=== PATIENT | male | born 1965 | race Caucasian/White ===

== ENCOUNTER 2016-10-23 12:43 | Emergency (ER) | payer MEDICAID ==
[2016-10-23] MEDS ORDERED: KETOROLAC 15 MG/1 ML SDV IVP ONE (13:38)
--- NOTE | 2016-10-23 13:45 | EDPHY ---
H & P Stated Complaint: Chronic low back pain exacerbation Time Seen by Provider: 10/23/16 13:12 HPI/ROS: Chief complaint low back pain HPI: 51-year-old male with a history of chronic low back pain and sciatica was walking today and twisted had exacerbation of worsening back pain. No new numbness or weakness. No difficulty with urination or with bowel movements. Patient's did state that he drank a couple shots of whiskey this morning hoping that would help. EMS was called and gave him fentanyl and Zofran and Valium. Patient is still complaining of a 7/10 pain. No nausea or vomiting. He did not fall. Did not hit his head. No loss of consciousness. Patient states he normally walks with a cane. He takes Toradol and cyclobenzaprine for his chronic back pain. ROS: 10 point Review of Systems is negative except as noted in the HPI. Past medical history: Sciatica and chronic back pain, hepatitis-C Medications: Cyclobenzaprine and tramadol Allergies: No known drug allergies Social history does smoke, drinks occasional alcohol, does use marijuana Physical exam: Gen: Awake, Alert, No Distress HEENT: Nose: no rhinorrhea Eyes: PERRLA, EOMI Mouth: Moist mucosa Neck: Supple, no JVD Chest: nontender, lungs clear to auscultation Heart: S1, S2 normal, no murmur Abd: Soft, non-tender, no guarding Back: no CVA tenderness, no midline tenderness, he has bilateral paraspinal tenderness in the lumbar and sacral muscles reproducing his presenting pain with palpable spasm Ext: no edema, non-tender Skin: no rash Neuro: CN II-XII intact, Sensation grossly intact, Strength 5/5 in bilateral upper and lower extremities - Personal History Current Tetanus/Diphtheria Vaccine: Unsure Current Tetanus Diphtheria and Acellular Pertussis (TDAP): Unsure - Medical/Surgical History Hx Asthma: No Hx Chronic Respiratory Disease: No Hx Diabetes: No Hx Cardiac Disease: No Hx Renal Disease: No Hx Cirrhosis: No Hx Alcoholism: No Hx HIV/AIDS: No Hx Splenectomy or Spleen Trauma: No Other PMH: Chronic low back pain, HEP C+ Constitutional: Initial Vital Signs Temperature (C) 37.1 C 10/23/16 12:52 Heart Rate 132 H 10/23/16 12:52 Respiratory Rate 18 10/23/16 12:52 Blood Pressure 125/92 H 10/23/16 12:52 O2 Sat (%) 94 10/23/16 12:52 O2 Delivery Mode Room Air Allergies/Adverse Reactions: No Known Allergies Allergy (Unverified 10/23/16 12:52) Home Medications: Medication Instructions Recorded Cyclobenzaprine 10/23/16 traMADol 10/23/16 Medical Decision Making Procedures: Procedure: Trigger point injection. Patient was noted to have palpable spasm in his bilateral lumbar and sacral paraspinal muscles. Patient was verbally consented. He was prepped with chlorhexidine prep. Patient was injected into lumbar and to sacral paraspinal muscles with 5 mL of bupivacaine into each for locations. Patient tolerated the procedure well. There are no complications. Procedure was performed by me. ED Course/Re-evaluation: Patient is feeling significantly improved after trigger-point injections bupivacaine, Lidoderm patch and Toradol. He is up and ambulating and asking to go home. Will discharge with instructions to continue Lidoderm patch. Use ibuprofen. Continue his home medications as well. Follow up with primary care physician. - Data Points Medications Given: Discontinued Medications Ketorolac Tromethamine (Toradol) 15 mg IVP EDNOW ONE Stop: 10/23/16 13:39 Last Admin: 10/23/16 13:45 Dose: 15 mg Lidocaine (Lidoderm 5%) 1 ea TD DAILY KEM Stop: 04/21/17 14:29 Last Admin: 10/23/16 14:31 Dose: 1 ea Lidocaine (Lidoderm 5%) 2 ea TD EDNOW ONE Stop: 10/23/16 14:31 Last Admin: 10/23/16 14:32 Dose: 2 ea Departure - Departure Disposition: Home, Routine, Self-Care Clinical Impression: Back pain Condition: Good Instructions: Back Pain (ED) Additional Instructions: Continue using Lidoderm patch and other home treatments for your back pain. Return to the emergency depart for increasing pain, fevers, chills, nausea, vomiting, or any other concerns. Referrals: Patient,NotPresent [Unknown] - As per Instructions
[2016-10-23] MEDS ORDERED: LIDOCAINE 5% 1 EA PATCH TD SCH (14:30)
[2016-10-23] MEDS ORDERED: LIDOCAINE 5% 1 EA PATCH TD ONE (14:30)
[2016-10-23 15:14] VITALS: BP 129/81; PULSE 81; RESP 16; TEMP 98.4; O2SAT 91
[2016-10-23] MEDS ORDERED: PATCH REMOVAL 1 EA PATCH TD SCH (21:00)
== END 2016-10-23 15:18 | disposition home or self-care (01) ==
PROC: 3E023BZ Introduction of Anesthetic Agent into Muscle, Percutaneous Approach (ICD-10-PCS; principal; 2016-10-23)
DX: M54.5 Low back pain (principal)
CPT/HCPCS: 96374; J1885

== ENCOUNTER 2017-01-19 12:20 | Emergency (ER) | payer MEDICAID ==
[2017-01-19] MEDS ORDERED: NS 1,000 ML IV ONE ×2 (12:55→13:43)
[2017-01-19 13:22] LABS: % IMMATURE GRANULYOCYTES 0.4 % (0.0-1.1); ABSOLUTE IMMATURE GRANULOCYTES 0.04 10^3/uL (0.00-0.10); ADD DIFF? NO; ADD MORPH? NO; ADD SCAN? NO; ATYPICAL LYMPHOCYTE FLAG 10 (0-99); FRAGMENT RBC FLAG 0 (0-99); HEMATOCRIT 55.5 % (40.0-51.0); HEMOGLOBIN 19.7 g/dL (13.7-17.5); LEFT SHIFT FLG 0 (0-99); LIPEMIA HEMOLYSIS FLAG 90 (0-99); MEAN CELL HEMOGLOBIN 32.5 pg (27.9-34.1); MEAN CELL HEMOGLOBIN CONCENTR. 35.5 g/dL (32.4-36.7); MEAN CELL VOLUME 91.4 fL (81.5-99.8); MEAN PLATELET VOLUME 9.3 fL (8.7-11.7); PLATELET CLUMPS FLAG 10 (0-99); PLATELET COUNT 311 10^3/uL (150-400); RED BLOOD CELL COUNT 6.07 10^6/uL (4.40-6.38); RED CELL DISTRIBUTION WIDTH 12.7 % (11.5-15.2)
[2017-01-19 13:31] LABS: ANION GAP 20 mEq/L (8-16); CALCIUM 9.5 mg/dL (8.5-10.4); CARBON DIOXIDE 18 mEq/l (22-31); CHLORIDE 103 mEq/L (97-110); CREATININE 0.7 mg/dL (0.7-1.3); GLOMERULAR FILTRATION RATE > 60; GLUCOSE 85 mg/dL (70-100); POTASSIUM 4.3 mEq/L (3.5-5.2); SODIUM 141 mEq/L (134-144)
--- NOTE | 2017-01-19 13:41 | EDPHY ---
H & P Stated Complaint: numbness in all extremities x3 dyas, sciatic pain, cough Time Seen by Provider: 01/19/17 13:22 HPI/ROS: CHIEF COMPLAINT: Tingling HISTORY OF PRESENT ILLNESS: The patient is a 52-year-old homeless man who comes to the emergency department complaining of paresthesias in both arms and legs from the elbows to his finger tips and from his knees to his toes. He states that these paresthesias of been present for about 3 days. He has a history of sciatica and chronic lumbar pain. He is also a smoker. At triage she was tachycardic and hypoxic although he denies chest pain or shortness of breath. He states that he is always tachycardic and that he had a transesophageal echo performed several months ago but no cause for his tachycardia was found. He states that he had a severe cold 2 months ago but has since recovered. He has not had any recent injections. He does not have any weakness or numbness. He does not have any trouble ambulating. No bowel or bladder abnormalities. No headache. No trauma. No rashes. REVIEW OF SYSTEMS: Constitutional: denies: chills, fever, recent illness, recent injury EENTM: denies: blurred vision, double vision, nose congestion Respiratory: denies: cough, shortness of breath Cardiac: denies: chest pain, irregular heart rate, lightheadedness, palpitations Gastrointestinal/Abdominal: denies: abdominal pain, diarrhea, nausea, vomiting, blood streaked stools Genitourinary: denies: dysuria, frequency, hematuria, pain Musculoskeletal: See HPI Skin: denies: lesions, rash, jaundice, bruising Neurological: denies: headache, numbness, paresthesia, tingling, dizziness, weakness Hematologic/Lymphatic: denies: blood clots, easy bleeding, easy bruising Immunologic/allergic: denies: HIV/AIDS, transplant EXAM: GENERAL: Well-appearing, well-nourished and in no acute distress. HEAD: Atraumatic, normocephalic. EYES: Pupils equal round and reactive to light, extraocular movements intact, sclera anicteric, conjunctiva are normal. ENT: TMs normal, nares patent, oropharynx clear without exudates. Moist mucous membranes. NECK: Normal range of motion, supple without lymphadenopathy or JVD. LUNGS: Breath sounds clear to auscultation bilaterally and equal. No wheezes rales or rhonchi. HEART: Regular rate and rhythm without murmurs, rubs or gallops. ABDOMEN: Soft, nontender, normoactive bowel sounds. No guarding, no rebound. No masses appreciated. BACK: No CVA tenderness, no spinal tenderness, step-offs or deformities EXTREMITIES: Normal range of motion, no pitting or edema. No clubbing or cyanosis. NEUROLOGICAL: Cranial nerves II through XII grossly intact. Normal speech, normal gait. 5/5 strength, normal movement in all extremities, normal sensation PSYCH: Normal mood, normal affect. SKIN: Warm, dry, normal turgor, no visible rashes or lesions. Source: Patient Exam Limitations: No limitations - Personal History Current Tetanus/Diphtheria Vaccine: Yes Current Tetanus Diphtheria and Acellular Pertussis (TDAP): Yes - Medical/Surgical History Hx Asthma: No Hx Chronic Respiratory Disease: No Hx Diabetes: No Hx Cardiac Disease: No Hx Renal Disease: No Hx Cirrhosis: No Hx Alcoholism: No Hx HIV/AIDS: No Hx Splenectomy or Spleen Trauma: No Other PMH: Chronic low back pain, HEP C+, Sciatica - Family History Significant Family History: Hypertension - Social History Smoking Status: Heavy smoker Alcohol Use: Heavy Drug Use: Marijuana Constitutional: Initial Vital Signs Temperature (C) 36.7 C 01/19/17 12:40 Heart Rate 133 H 01/19/17 12:40 Respiratory Rate 20 01/19/17 12:40 Blood Pressure 155/114 H 01/19/17 12:40 O2 Sat (%) 86 L 01/19/17 12:40 O2 Delivery Mode Room Air O2 (L/minute) 2 Allergies/Adverse Reactions: No Known Allergies Allergy (Unverified 10/23/16 12:52) Home Medications: Medication Instructions Recorded Cyclobenzaprine 10/23/16 traMADol 10/23/16 Medical Decision Making - Diagnostics Imaging Results: Imaging Impressions Chest X-Ray 01/19/17 13:06 Impression: Central bronchitis, otherwise negative chest. Chest/Thorax CTA 01/19/17 13:38 Impression: No pulmonary emboli. I telephoned results to Dr. Marcelo Chiang at 1439 hours. ED Course/Re-evaluation: The patient has no neurologic deficits just subjective paresthesias. No difficulty with ambulation or incontinence. No abnormality reflexes. No fever or risk factors for Guillain-Malden other than his upper respiratory infection 2 months ago. He does have her present tachycardic and hypoxic although he does not complain of these. His tachycardia has improved somewhat with IV fluids. 3:15 p[address]. we discussed the CT results. The patient's heart rate is improved significantly with fluids and is now 100. He is not hypoxic on room air. He is asking for pain medication for his back. We will treat and observe . 4:00 p.m. the patient's heart rate is resolved with IV fluids and pain medication. He is saturating well. His paresthesias have improved slightly. There is no obvious cause for these. He will follow up with his regular physician if they returned. He is here in the emergency department ambulating without difficulty. Differential Diagnosis: Partial list of the Differential diagnosis considered include but were not limited to; paresthesias, electrolyte abnormality, hypoxia, anemia, PE and although unlikely based on the history and physical exam, I also considered acute coronary disease, infection, Guillain-Malden, spinal cord compression. I discussed these differential diagnoses and the plan with the patient as well as the usual and expected course. The patient understands that the diagnosis is provisional and that in medicine we are not always correct and that further workup is often warranted. Usual and customary warnings were given. All of the patient's questions were answered. The patient was instructed to return to the emergency department should the symptoms at all worsen or return, otherwise to followup with the physician as we discussed. - Data Points Laboratory Results: Laboratory Results 01/19/17 12:35 01/19/17 12:35 01/19/17 01/19/17 01/19/17 12:35 12:35 12:35 WBC 11.39 10^3/uL H 10^3/uL (3.80-9.50) RBC 6.07 10^6/uL 10^6/uL (4.40-6.38) Hgb 19.7 g/dL H g/dL (13.7-17.5) Hct 55.5 % H % (40.0-51.0) MCV 91.4 fL fL (81.5-99.8) MCH 32.5 pg pg (27.9-34.1) MCHC 35.5 g/dL g/dL (32.4-36.7) RDW 12.7 % % (11.5-15.2) Plt Count 311 10^3/uL 10^3/uL (150-400) MPV 9.3 fL fL (8.7-11.7) Neut % (Auto) 51.9 % % (39.3-74.2) Lymph % (Auto) 40.6 % % (15.0-45.0) [place] % (Auto) 6.1 % % (4.5-13.0) Eos % (Auto) 0.6 % % (0.6-7.6) Baso % (Auto) 0.4 % % (0.3-1.7) Nucleat RBC Rel Count 0.0 % % (0.0-0.2) Absolute Neuts (auto) 5.91 10^3/uL 10^3/uL (1.70-6.50) Absolute Lymphs (auto) 4.63 10^3/uL H 10^3/uL (1.00-3.00) Absolute Monos (auto) 0.69 10^3/uL 10^3/uL (0.30-0.80) Absolute Eos (auto) 0.07 10^3/uL 10^3/uL (0.03-0.40) Absolute Basos (auto) 0.05 10^3/uL 10^3/uL (0.02-0.10) Absolute Nucleated RBC 0.00 10^3/uL 10^3/uL (0-0.01) Immature Gran % 0.4 % % (0.0-1.1) Immature Gran # 0.04 10^3/uL 10^3/uL (0.00-0.10) PT 12.7 SEC SEC (12.0-15.0) INR 0.96 (0.83-1.16) APTT 29.5 SEC SEC (23.0-38.0) Sodium 141 mEq/L mEq/L (134-144) Potassium 4.3 mEq/L mEq/L (3.5-5.2) Chloride 103 mEq/L mEq/L (97-110) Carbon Dioxide 18 mEq/l L mEq/l (22-31) Anion Gap 20 mEq/L H mEq/L (8-16) BUN 7 mg/dL mg/dL (7-23) Creatinine 0.7 mg/dL mg/dL (0.7-1.3) Estimated GFR > 60 Glucose 85 mg/dL mg/dL (70-100) Calcium 9.5 mg/dL mg/dL (8.5-10.4) Magnesium Troponin I 01/19/17 12:33 WBC RBC Hgb Hct MCV MCH MCHC RDW Plt Count MPV Neut % (Auto) Lymph % (Auto) [place] % (Auto) Eos % (Auto) Baso % (Auto) Nucleat RBC Rel Count Absolute Neuts (auto) Absolute Lymphs (auto) Absolute Monos (auto) Absolute Eos (auto) Absolute Basos (auto) Absolute Nucleated RBC Immature Gran % Immature Gran # PT INR APTT Sodium Potassium Chloride Carbon Dioxide Anion Gap BUN Creatinine Estimated GFR Glucose Calcium Magnesium 1.8 mg/dL mg/dL (1.6-2.3) Troponin I < 0.012 ng/mL ng/mL (0-0.034) Medications Given: Discontinued Medications Hydromorphone HCl (Dilaudid) 1 mg IVP EDNOW ONE Stop: 01/19/17 15:08 Last Admin: 01/19/17 15:34 Dose: 1 mg Sodium Chloride (Ns) 1,000 mls @ 0 mls/hr IV ONCE ONE PRN Reason: Wide Open Stop: 01/19/17 12:56 Last Admin: 01/19/17 13:02 Dose: 1,000 mls Sodium Chloride (Ns) 1,000 mls @ 0 mls/hr IV ONCE ONE; Wide Open PRN Reason: Protocol Stop: 01/19/17 13:44 Last Admin: 01/19/17 15:03 Dose: 1,000 mls Departure - Departure Disposition: Home, Routine, Self-Care Clinical Impression: Paresthesia Condition: Fair Instructions: Paresthesia (ED) Referrals: Patient,NotPresent [Unknown] - As per Instructions Maude Barton MD [Medical Doctor] - As per Instructions
[2017-01-19] MEDS ORDERED: IOPAMIDOL (ISOVUE 370) 100 ML BTL IV ONE (13:45)
[2017-01-19 14:00] LABS: MAGNESIUM 1.8 mg/dL (1.6-2.3)
[2017-01-19 14:06] LABS: INR 0.96 (0.83-1.16); PROTIME(PATIENT) 12.7 SEC (12.0-15.0)
[2017-01-19 14:07] LABS: APTT 29.5 SEC (23.0-38.0)
[2017-01-19 14:10] LABS: TROPONIN I < 0.012 ng/mL (0-0.034)
--- NOTE | 2017-01-19 15:01 | CPEKG ---
Heart Rate: 113 RR Interval: 531 P-R Interval: 148 QRSD Interval: 82 QT Interval: 332 QTC Interval: 456 P [place]: 55 QRS [place]: 64 T Wave [place]: 49 EKG Severity - OTHERWISE NORMAL ECG - EKG Impression: SINUS TACHYCARDIA Electronically Signed By: Kristy Huff 19-Jan-2017 15:37:30
[2017-01-19] MEDS ORDERED: HYDROmorphONE/DILAUDID 1 MG/ML SYR IVP ONE (15:07)
[2017-01-19 16:05] VITALS: RESP 16
[2017-01-19 16:20] VITALS: BP 156/95; PULSE 104; TEMP 98.2; O2SAT 94
== END 2017-01-19 16:20 | disposition home or self-care (01) ==
LOC: EDUNIT#
DX: R20.2 Paresthesia of skin (principal); F17.200 Nicotine dependence, unspecified, uncomplicated; I10 Essential (primary) hypertension
CPT/HCPCS: 96374; J1170; Q9967

== ENCOUNTER → 2017-03-03 | Outpatient (CLI) | payer MEDICAID ==
[~2017-03-03] MED LIST: DEPO METHYLPREDNISOLONE 40 MG/ML SDV ONE; IOPAMIDOL (ISOVUE 370) 100 ML BTL IV ONE; LIDOCAINE 1% 2 ML INJ ONE; LIDOCAINE 1% 300 MG/30 ML SDV ONE; ROPIVACAINE HCL 150 MG/30 ML INJ ONE
== END ==
LOC: FIMAGING 10:26
PROVIDERS: ATTEND Radiology Diagnostic Radiology
PROC: 3E0U33Z Introduction of Anti-inflammatory into Joints, Percutaneous Approach (ICD-10-PCS; principal; 2017-03-03)
PROC: BQ101ZZ Fluoroscopy of Right Hip using Low Osmolar Contrast (ICD-10-PCS; principal; 2017-03-03)
PROC: 3E0U3BZ Introduction of Anesthetic Agent into Joints, Percutaneous Approach (ICD-10-PCS; principal; 2017-03-03)
DX: M16.11 Unilateral primary osteoarthritis, right hip (principal)
CPT/HCPCS: J1030; J2795; Q9967

== ENCOUNTER 2017-06-09 08:35 | Emergency (ER) | payer MEDICAID ==
[2017-06-09] MEDS ORDERED: DIAZEPAM 10 MG/2 ML SYR IVP ONE (08:40)
[2017-06-09] MEDS ORDERED: KETOROLAC 15 MG/1 ML SDV IVP ONE (08:40)
--- NOTE | 2017-06-09 08:43 | EDPHY ---
H & P HPI/ROS: CHIEF COMPLAINT: Sciatica HISTORY OF PRESENT ILLNESS: Patient is a 52-year-old homeless man who comes to the emergency department by EMS complaining of severe left-sided sciatic pain. He states he has had this pain for over 10 years. He has been referred for surgery but they will not consider until he stop smoking. He takes Lyrica daily with minimal improvement. He has seen at the [facility]. He denies any recent trauma. No recent fevers or infections. He states that the pain is simply severe and he cannot tolerate it. It is not changed acutely. He is able to move his legs and ambulate but has significant pain. No incontinence. No paresthesias or weakness. REVIEW OF SYSTEMS: Constitutional: denies: chills, fever, recent illness, recent injury EENTM: denies: blurred vision, double vision, nose congestion Respiratory: denies: cough, shortness of breath Cardiac: denies: chest pain, irregular heart rate, lightheadedness, palpitations Gastrointestinal/Abdominal: denies: abdominal pain, diarrhea, nausea, vomiting, blood streaked stools Genitourinary: denies: dysuria, frequency, hematuria, pain Musculoskeletal: See HPI Skin: denies: lesions, rash, jaundice, bruising Neurological: denies: headache, numbness, paresthesia, tingling, dizziness, weakness Hematologic/Lymphatic: denies: blood clots, easy bleeding, easy bruising Immunologic/allergic: denies: HIV/AIDS, transplant EXAM: GENERAL: Well-appearing, well-nourished and in no acute distress. HEAD: Atraumatic, normocephalic. EYES: Pupils equal round and reactive to light, extraocular movements intact, sclera anicteric, conjunctiva are normal. ENT: TMs normal, nares patent, oropharynx clear without exudates. Moist mucous membranes. NECK: Normal range of motion, supple without lymphadenopathy or JVD. LUNGS: Breath sounds clear to auscultation bilaterally and equal. No wheezes rales or rhonchi. HEART: Regular rate and rhythm without murmurs, rubs or gallops. ABDOMEN: Soft, nontender, normoactive bowel sounds. No guarding, no rebound. No masses appreciated. BACK: No CVA tenderness, no spinal tenderness, step-offs or deformities EXTREMITIES: Pain in left aspect of back, gluteus and down leg. Normal range of motion and sensation. Normal strength. NEUROLOGICAL: Cranial nerves II through XII grossly intact. Normal speech, able to ambulate but with pain. 5/5 strength, normal movement in all extremities, normal sensation PSYCH: Normal mood, normal affect. SKIN: Warm, dry, normal turgor, no visible rashes or lesions. Source: Patient, EMS, Old records Exam Limitations: No limitations - Medical/Surgical History Hx Asthma: No Hx Chronic Respiratory Disease: No Hx Diabetes: No Hx Cardiac Disease: No Hx Renal Disease: No Hx Cirrhosis: No Hx Alcoholism: No Hx HIV/AIDS: No Hx Splenectomy or Spleen Trauma: No Other PMH: Chronic low back pain, HEP C+, Sciatica - Family History Significant Family History: No pertinent family hx - Social History Smoking Status: Heavy smoker Alcohol Use: Heavy Drug Use: Marijuana Constitutional: Initial Vital Signs Temperature (C) 36.5 C 06/09/17 08:43 Heart Rate 106 H 06/09/17 08:43 Respiratory Rate 16 06/09/17 08:43 Blood Pressure 114/74 06/09/17 08:43 O2 Sat (%) 94 06/09/17 08:43 O2 Delivery Mode Room Air Allergies/Adverse Reactions: No Known Allergies Allergy (Unverified 10/23/16 12:52) Home Medications: Medication Instructions Recorded LYRICA 06/09/17 Lidocaine 5% [Lidoderm 5% Patch 1 ea TD DAILY #10 patch 06/09/17 (*)] Medical Decision Making ED Course/Re-evaluation: 9:15 p.m. the patient has not experienced any pain relief. We will try ketamine. 10:00 a.m. patient is feeling much better after ketamine. We will place a lidocaine patch. He is ready to go. I encouraged him to stop smoking and follow up with his surgeon to evaluate for surgery as he had previously discussed. Patient agrees with this plan. He declines further workup or testing at this time. Differential Diagnosis: Partial list of the Differential diagnosis considered include but were not limited to; sciatica, muscle strain, and although unlikely based on the history and physical exam, I also considered cauda equina, compression, fracture , infection. I discussed these differential diagnoses and the plan with the patient as well as the usual and expected course. The patient understands that the diagnosis is provisional and that in medicine we are not always correct and that further workup is often warranted. Usual and customary warnings were given. All of the patient's questions were answered. The patient was instructed to return to the emergency department should the symptoms at all worsen or return, otherwise to followup with the physician as we discussed. - Data Points Medications Given: Discontinued Medications Diazepam (Valium Injection) 5 mg IVP EDNOW ONE Stop: 06/09/17 08:41 Last Admin: 06/09/17 08:55 Dose: 5 mg Ketamine HCl (Ketamine) 15.2 mg 0.2 mg/kg (15.2 mg) IVP EDNOW ONE Stop: 06/09/17 09:16 Last Admin: 06/09/17 09:32 Dose: 15.2 mg Ketorolac Tromethamine (Toradol) 15 mg IVP EDNOW ONE Stop: 06/09/17 08:41 Last Admin: 06/09/17 08:55 Dose: 15 mg Lidocaine (Lidoderm 5%) 1 ea TD EDNOW ONE Stop: 06/09/17 10:05 Last Admin: 06/09/17 10:23 Dose: 1 ea Departure - Departure Disposition: Home, Routine, Self-Care Clinical Impression: Sciatica of left side Condition: Fair Instructions: Sciatica (ED) Referrals: Patient,NotPresent [Unknown] - As per Instructions Prescriptions: Lidocaine 5% [Lidoderm 5% Patch (*)] 1 ea TD DAILY #10 patch
[2017-06-09 08:45] VITALS: RESP 16; TEMP 97.7
[2017-06-09] MEDS ORDERED: KETAMINE 100 MG/10 ML SYR IVP ONE (09:15)
[2017-06-09] MEDS ORDERED: LIDOCAINE 5% 1 EA PATCH TD ONE (10:04)
[2017-06-09 10:13] VITALS: BP 144/80; PULSE 99; O2SAT 95
[2017-06-09] MEDS ORDERED: PATCH REMOVAL 1 EA PATCH TD SCH (21:00)
== END 2017-06-09 10:22 | disposition home or self-care (01) ==
LOC: EDUNIT#
DX: M54.32 Sciatica, left side (principal); F17.200 Nicotine dependence, unspecified, uncomplicated
CPT/HCPCS: 96374; J1885